=== PATIENT | male | born 1975 | race Hispanic/Latino ===

== ENCOUNTER 2021-03-01 10:10 | Emergency (ER) | payer BC ==
[~2021-03-01] VITALS: Ht 157.5 cm; Wt 72.1 kg
[2021-03-01] MEDS ORDERED: SODIUM CHLORIDE 0.9% 100 ML ONE (10:34)
[2021-03-01] MEDS ORDERED: CASIRIVIMAB/IMDEVIMAB 10 ML in SODIUM CHLORIDE 0.9% 100 ML IV ONE (11:00)
== END 2021-03-01 11:18 | disposition home or self-care (01) ==
LOC: ER 10:13
DX: U07.1 COVID-19 (principal); R05.9 Cough, unspecified; J06.9 Acute upper respiratory infection, unspecified; I10 Essential (primary) hypertension
CPT/HCPCS: 99283; J7050